=== PATIENT | female | born 1945 | race Caucasian/White ===

== ENCOUNTER 2017-07-19 08:11 | Inpatient (IN) | payer OTHER ==
--- NOTE | 2017-07-19 08:59 | PDOC ---
History of Present Illness - General Chief Complaint: Pain Stated Complaint: PAIN/ ABD, BACK Time Seen by Provider: 07/19/17 08:28 History Source: Patient Exam Limitations: No Limitations - History of Present Illness Initial Comments: This is a 72 YOF with h/o diverticulitis, HTN, chronic hematuria, cystocele repair with dermal graft and transobturator taping, total HYST/STUDY ABROAD ADVISOR, and lumbar laminectomy who presents c/o worsening LLQ pain since 07/15 which feels the same as her prior flares of diverticulitis (most recent was 9 months ago, always treated as an outpatient). She saw her PCP (Juan C Oden) on Tuesday 07/17 who prescribed Levaquin and Flagyl for presumed diverticulitis flare. He checked her urine at that time to r/o UTI and did not find infection (all per the patient's report). The pain is a constant 9/10 and twisting, worst in the LLQ, radiating to the entire groin and to the L>R back, and worsens with walking , urinating, and during bowel movements. She has been taking Tramadol per her normal prescription with partial relief. She additionally notes chills, nausea, and unchanged chronic constipation, but she denies any fever, vomiting, black/ bloody stool, diarrhea, vaginal bleeding/discharge, numbness, tingling, focal weakness, or other symptoms. She sees Dr. Mcmanus who last did an upper endoscopy and colonoscopy in August which was normal. Past History - Past Medical History Allergies/Adverse Reactions: Allergies Allergy/AdvReac Type Severity Reaction Status Date / Time Sulfa (Sulfonamide Allergy Verified 07/19/17 08:25 Antibiotics) [Sulfa(Sulfonamide Antibiotics)] Home Medications: Ambulatory Orders Metoprolol Succinate [Toprol Xl] 50 mg PO DAILY 10/19/14 Tramadol HCl [Ultram -] 50 mg PO BID PRN 10/19/14 Lisinopril/Hydrochlorothiazide [Lisinopril-Hctz 20-25 mg Tab] 1 each PO DAILY Metronidazole 500 mg PO BID 03/15/16 Ondansetron HCl [Zofran] 4 mg PO TID PRN 03/15/16 Levofloxacin [Levaquin -] 250 mg PO DAILY 07/19/17 Omeprazole 40 mg PO DAILY 07/19/17 Polyethylene Glycol 3350 [Miralax (For Daily Use) -] 17 gm PO DAILY 07/19/17 Potassium Citrate [Potassium Citrate ER] 20 meq PO DAILY 07/19/17 Anemia: No Asthma: No Cancer: No Cardiac Disorders: No COPD: No CHF: No GI Disorders: Yes (Polyps in colon) Disorders: Yes (kidney infection) HTN: Yes Hypercholesterolemia: Yes Thyroid Disease: No - Surgical History Abdominal Surgery: Yes (BLADDER SURGERY) Cardiac Surgery: No Lung Surgery: No Neurologic Surgery: Yes (back surgery) - Suicide/Smoking/Psychosocial Hx Smoking Status: Yes Smoking History: Never smoked Have you smoked in the past 12 months: Yes Number of Cigarettes Smoked Daily: 3 Information on smoking cessation initiated: No 'Breaking Loose' booklet given: 03/15/16 Hx Alcohol Use: No Drug/Substance Use Hx: No Substance Use Type: None Hx Substance Use Treatment: No Abd/GI Specific PMHX - Complaint Specific PMHX GERD: Yes GI Ulcer Disease: No Review of Systems - Review of Systems Able to Perform ROS?: Yes Constitutional: Yes: Chills. No: Fever, Unexplained wgt Loss HEENTM: No: Nose Congestion, Throat Pain Respiratory: No: Cough, Shortness of Breath Cardiac (ROS): No: Chest Pain, Palpitations ABD/GI: Yes: Constipated (chronic), Nausea, Other (abdominal pain). No: Diarrhea, Rectal Bleeding, Vomiting : Yes: Dysuria. No: Frequency, Incontinence Musculoskeletal: Yes: Back Pain (L>R). No: Neck Pain Integumentary: No: Bruising, Rash Neurological: No: Headache, Numbness, Tingling, Weakness, Dizziness Endocrine: No: Unexplained Weight Gain, Unexplained Weight Loss *Physical Exam - Vital Signs Last Vital Signs Temp Pulse Resp BP Pulse Ox 98.3 F 86 18 140/50 99 07/19/17 08:21 07/19/17 08:21 07/19/17 08:21 07/19/17 08:21 07/19/17 08:21 - Physical Exam General Appearance: Yes: Nourished, Appropriately Dressed, Other (Pleasant older adult female who is well-appearing, occasionally splints ). No: Apparent Distress HEENT: positive: EOMI, Normal Voice, Hearing Grossly Normal. negative: Scleral Icterus (R), Scleral Icterus (L), Nasal Congestion Neck: positive: Trachea midline, Supple. negative: Tender, Rigid Respiratory/Chest: positive: Lungs Clear, Normal Breath Sounds. negative: Respiratory Distress, Crackles, Rhonchi, Stridor, Wheezing Cardiovascular: positive: Regular Rhythm, Regular Rate. negative: Murmur Gastrointestinal/Abdominal: positive: Normal Bowel Sounds, Soft. negative: Tender, Organomegaly, Pulsatile Mass, Guarding Musculoskeletal: positive: Normal Inspection. negative: Decreased Range of Motion, Vertebral Tenderness Extremity: positive: Normal Capillary Refill, Normal Inspection, Normal Range of Motion. negative: Tender, Cyanosis Integumentary: positive: Normal Color, Dry, Warm. negative: Erythema, Rash, Bruising Neurologic: positive: vendor management associate II-XII NML intact, Fully Oriented, Alert, Normal Mood/ Affect, Normal Response, Motor Strength 11/23 ED Treatment Course - LABORATORY CBC & Chemistry Diagram: 07/19/17 09:08 07/19/17 09:08 Medical Decision Making - Medical Decision Making 72 YOF with h/o diverticulitis p/w LLQ and suprapubic pain radiating to the back , like prior diverticulitis flare. On exam VS wnl and patient initially in no distress but occasionally begins splinting LLQ with hands. Moderate ttp LLQ and mild ttp suprapubic and RLQ, no CVA ttp, otherwise unremarkable. DDX IBNLT diverticulitis, UTI/pyelonephritis, renal stone, perf diverticulosis, appendicitis, interstitial cystitis, nerve impingement, etc. Ordered is CBCD, CMP, lipase, CT ab/pel with IV contrast. 07/19/17 13:03 CT Abdomen/Pelvis with IV contrast shows e/o acute sigmoid diverticulitis w/o fluid collection or abscess. Page sent to Juan C Oden (PCP for patient). *DC/Admit/Observation/Transfer Diagnosis at time of Disposition: Sigmoid diverticulitis - Discharge Dispostion Condition at time of disposition: Guarded Admit: Yes - Referrals - Patient Instructions - Post Discharge Activity
--- NOTE | 2017-07-19 09:07 | PDOC ---
Attending Attestation - Resident Resident Name: Caty Brown - ED Attending Attestation I have performed the following: I have examined & evaluated the patient, The case was reviewed & discussed with the resident, I agree w/resident's findings & plan, Exceptions are as noted - HPI HPI: 07/19/17 09:03 72y F hx of htn, pre-dm, recurrent diverticulitis, radiating the the groin, pain is intermittent, lasting for ~1hr, worse in the lower abdomen (right and left) but worse on the left, associated nausea, chills, w/op fever, vomiting, dysuria, diarrhea, bpr. Symptoms since the past 4 days, had seen her pcp and was started on levqauin/flagyl and was negative. GI dr. kasper. Has chronic hematuria that she follows up with dr. mcnally. NO known hx of kidney stones. pt declines pain meds currently - Physicial Exam PE: 07/19/17 09:29 GENERAL: The patient is awake, alert, and fully oriented, Nontoxic - in no acute distress. ABDOMEN: Soft, lower abd tenderness L>R, EXTREMITIES: Normal range of motion, no edema. NEUROLOGICAL: No facial assymetry, Normal speech, SKIN: Warm, Dry, normal turgor, - Medical Decision Making 07/19/17 09:21 pt presenting with lower abdominal pain x 4 days, intermittent, nonradiating, associated with nausea, pain seems worse when she urinates. ddx includes diverticulitis, uti, pyelonephritis will ck labs, ua, CTAP pt declines any pain meds currently 07/19/17 20:15 ct was c/w diverituliits pt admited for failed outpatient treatment of diverticulitis Heart Score/ECG Review - ECG Impressions Comment:: 07/19/17 14:58 Twelve-lead EKG was performed and reviewed by me. There is normal sinus rhythm with a normal rate. Rate of 74 Impression: Normal twelve-lead EKG
[2017-07-19 09:33] LABS: BASO % 0.7 % (0-2.0); EOS % 1.7 % (0-4.5); HEMATOCRIT 44.7 % (32.4-45.2); HEMOGLOBIN 14.9 GM/dL (10.7-15.3); LYMPH % 23.3 % (8-40); MCH 31.1 pg (25.7-33.7); MCHC 33.2 g/dl (32.0-36.0); MEAN CELL VOLUME 93.7 fl (80-96); MEAN PLT VOLUME 9.9 fl (7.5-11.1); MONO % 10.9 % (3.8-10.2); NEUT % 63.4 % (42.8-82.8); PLATELET COUNT 218 K/MM3 (134-434); RBC 4.78 M/mm3 (3.60-5.2); RDW 13.4 % (11.6-15.6); WHITE BLOOD COUNT 10.1 K/mm3 (4.0-10.0)
[2017-07-19 10:02] LABS: URINE APPEARANCE CLEAR; URINE BILIRUBIN NEGATIVE (NEGATIVE); URINE BLOOD NEGATIVE (NEGATIVE); URINE COLOR AMBER; URINE GLUCOSE (UA) NEGATIVE (NEGATIVE); URINE KETONE NEGATIVE (NEGATIVE); URINE LEUK ESTERASE TRACE (NEGATIVE); URINE NITRITE NEGATIVE (NEGATIVE); URINE PROTEIN NEGATIVE (NEGATIVE)
[2017-07-19 10:06] LABS: ALBUMIN 3.6 g/dl (3.4-5.0); ANION GAP 8 (8-16); BILIRUBIN,TOTAL 0.6 mg/dL (0.2-1.0); BLOOD UREA NITROGEN 16 mg/dL (7-18); CALCIUM 9.5 mg/dL (8.5-10.1); CHLORIDE 102 mmol/L (98-107); CO2 26 mmol/L (21-32); CREATININE 0.7 mg/dL (0.55-1.02); GLUCOSE,RANDOM 111 mg/dL (74-106); LIPASE 164 U/L (73-393); MAGNESIUM 2.2 mg/dL (1.8-2.4); PHOSPHOROUS 3.7 mg/dL (2.5-4.9); SGOT/AST 15 U/L (15-37); SGPT/ALT 18 U/L (12-78); SODIUM 136 mmol/L (136-145)
[2017-07-19 10:07] LABS: ALK PHOS 104 U/L (45-117)
[2017-07-19 10:56] LABS: EPI CELLS RARE /HPF (FEW); URINE MUCUS RARE
--- NOTE | 2017-07-19 13:27 | HP ---
Admitting History and Physical - Admission Chief Complaint: RT AND LT ABD PAIN NO OTHER COMPLAINTS X 4 DAYS NOW WAS ON FLAGLY LEVAQUIN 3 DAYS NOW PO History Source: Patient Limitations to Obtaining History: No Limitations - Past Medical History Cardiovascular: Yes: HTN Gastrointestinal: Yes: Diverticulitis, Diverticulosis ...: No Musculoskeletal: Yes: Chronic low back pain - Past Surgical History Past Surgical History: Yes: Hysterectomy - Smoking History Smoking history: Never smoked Have you smoked in the past 12 months: Yes Aproximately how many cigarettes per day: 3 - Alcohol/Substance Use Hx Alcohol Use: No - Social History ADL: Independent History of Recent Travel: No Home Medications - Allergies Allergies/Adverse Reactions: Allergies Allergy/AdvReac Type Severity Reaction Status Date / Time Sulfa (Sulfonamide Allergy Verified 07/19/17 08:25 Antibiotics) [Sulfa(Sulfonamide Antibiotics)] - Home Medications Home Medications: Ambulatory Orders Metoprolol Succinate [Toprol Xl] 50 mg PO DAILY 10/19/14 Tramadol HCl [Ultram -] 50 mg PO BID PRN 10/19/14 Lisinopril/Hydrochlorothiazide [Lisinopril-Hctz 20-25 mg Tab] 1 each PO DAILY Metronidazole 500 mg PO BID 03/15/16 Ondansetron HCl [Zofran] 4 mg PO TID PRN 03/15/16 Levofloxacin [Levaquin -] 250 mg PO DAILY 07/19/17 Omeprazole 40 mg PO DAILY 07/19/17 Polyethylene Glycol 3350 [Miralax (For Daily Use) -] 17 gm PO DAILY 07/19/17 Potassium Citrate [Potassium Citrate ER] 20 meq PO DAILY 07/19/17 Family Disease History - Family Disease History Family History: Unremarkable Review of Systems - Review of Systems Gastrointestinal: reports: Abdominal Pain Physical Examination Vital Signs: Vital Signs Temperature 98.3 F 07/19/17 08:21 Pulse Rate 86 07/19/17 08:21 Respiratory Rate 18 07/19/17 08:21 Blood Pressure 140/50 07/19/17 08:21 O2 Sat by Pulse Oximetry (%) 99 07/19/17 08:21 Gastrointestinal: Yes: Tenderness, Tenderness, Epigastrium Labs: CBC, BMP 07/19/17 09:08 07/19/17 09:08 Assessment/Plan FLAGYL LEVOQIN IV ID CONSULT GI CONSULT NPO CONT ALL MEDS HOME
[2017-07-19] MEDS ORDERED: LEVOFLOXACIN 500 MG IVPB 500 MG/100 ML BAG IVPB ONE ×2 (13:31→15:00)
--- NOTE | 2017-07-19 14:55 | CONSULT ---
Consultation: REQUESTING PROVIDER: CONSULT REQUEST: We have been asked to medically evaluate this patient for recurrent diverticulitis. HISTORY OF PRESENT ILLNESS: 72 y/o F with PMH IBS, diverticulitis, HTN, chronic hematuria, cystocele repair , lumbar laminectomy, who presented to the ED with LLQ pain x 4 days. As per pt , on , she suddenly developed a loss of appetite. She thought that it was just gas, however it worsened. She soon developed 10/10 pain in her LLQ and RLQ that radiated to her back. The pain was intermittent, with each episode lasting for five minutes. Stated that it felt different from past diverticulitis episodes, as it spread to her back - in past episodes, she mainly experienced midepigastric pain. Pt tried tramadol, which minorly alleviated her pain. On 07/17, she saw her PCP Dr. Oden, who prescribed her levaquin and flagyl for a diverticulitis flare. Upon arrival to ED, she is on Day 3 of her abx course. Pain is a/w nausea. Pt denies LOREDO, fever, chills, or changes in urinary or bowel function. PMH: IBS, diverticulitis, HTN, chronic hematuria PSxH: cystolele repair, lumbar laminectomy meds: lisinopril, K citrate, polyethylene glycol, paroxetine, metoprolol, tramadol allergies: sulfa - causes angioedema FH: sister w/breast [place] SH: ~50 yrs, lives with family at home, smokes 1-2 cig/day x 40-50 yrs, denies recreational drug use ID team consulted for recurrent diverticulitis. REVIEW OF SYSTEMS: CONSTITUTIONAL: +loss of appetite Absent: fever, chills, diaphoresis, generalized weakness, malaise, loss of appetite, weight change HEENT: Absent: rhinorrhea, nasal congestion, throat pain, throat swelling, difficulty swallowing, mouth swelling, ear pain, eye pain, visual changes CARDIOVASCULAR: Absent: chest pain, syncope, palpitations, irregular heart rate, lightheadedness , peripheral edema RESPIRATORY: Absent: cough, shortness of breath, dyspnea with exertion, orthopnea, wheezing, stridor, hemoptysis GASTROINTESTINAL:+abdominal pain, nausea Absent: abdominal pain, abdominal distension, nausea, vomiting, diarrhea, constipation, melena, hematochezia GENITOURINARY: Absent: dysuria, frequency, urgency, hesitancy, hematuria, flank pain, genital pain MUSCULOSKELETAL: Absent: myalgia, arthralgia, joint swelling, back pain, neck pain SKIN: Absent: rash, itching, pallor HEMATOLOGIC/IMMUNOLOGIC: Absent: easy bleeding, easy bruising, lymphadenopathy, frequent infections ENDOCRINE: Absent: unexplained weight gain, unexplained weight loss, heat intolerance, cold intolerance NEUROLOGIC: Absent: headache, focal weakness or paresthesias, dizziness, unsteady gait, seizure, mental status changes, bladder or bowel incontinence PSYCHIATRIC: Absent: anxiety, depression, suicidal or homicidal ideation, hallucinations. PHYSICAL EXAMINATION Vital Signs 07/19/17 08:21 Temperature 98.3 F Pulse Rate 86 Respiratory 18 Rate Blood Pressure 140/50 O2 Sat by Pulse 99 Oximetry (%) GENERAL: Awake, alert, and fully oriented, in mild distress. HEAD: Normal with no signs of trauma. EYES: Pupils equal, round and reactive to light, extraocular movements intact, sclera anicteric, conjunctiva clear. EARS, NOSE, THROAT: Ears normal, nares patent, oropharynx clear without exudates. NECK: Normal range of motion, supple LUNGS: Breath sounds equal, clear to auscultation bilaterally. No wheezes, and no crackles. No accessory muscle use. HEART: Regular rate and rhythm, normal S1 and S2 without murmur, rub or gallop. ABDOMEN: Soft, tender to palpation RLQ, LLQ, flanks, distended, normoactive bowel sounds, no guarding, no rebound MUSCULOSKELETAL: No CVA tenderness LOWER EXTREMITIES: 2+ posterior tibial pulses, warm. No peripheral edema. NEUROLOGICAL: Cranial nerves II-XII intact. Laboratory Results - last 24 hr 07/19/17 07/19/17 07/19/17 09:08 09:08 09:08 WBC 10.1 H RBC 4.78 Hgb 14.9 Hct 44.7 MCV 93.7 MCH 31.1 MCHC 33.2 RDW 13.4 Plt Count 218 MPV 9.9 Neutrophils % 63.4 Lymphocytes % 23.3 Monocytes % 10.9 H Eosinophils % 1.7 Basophils % 0.7 Sodium 136 Potassium 4.0 D Chloride 102 Carbon Dioxide 26 Anion Gap 8 BUN 16 D Creatinine 0.7 Creat Clearance w eGFR > 60 Random Glucose 111 H Calcium 9.5 Phosphorus 3.7 Magnesium 2.2 Total Bilirubin 0.6 AST 15 D ALT 18 D Alkaline Phosphatase 104 Total Protein 7.0 Albumin 3.6 Lipase 164 Urine Color Sima Urine Appearance Clear Urine pH 6.0 Ur Specific [place] 1.024 Urine Protein Negative Urine Glucose (UA) Negative Urine Ketones Negative Urine Blood Negative Urine Nitrite Negative Urine Bilirubin Negative Urine Urobilinogen 2.0 H Ur Leukocyte Esterase Negative Urine WBC (Auto) 1 Urine RBC (Auto) 4 Ur Epithelial Cells Rare Urine Mucus Rare Active Medications Generic Name Dose Route Start Last Admin Trade Name Richard PRN Reason Stop Dose Admin Aspirin 81 mg 07/20/17 10:00 Ecotrin - PO DAILY PAVAN Metronidazole 500 mg in 100 mls @ 100 mls/hr 07/19/17 18:00 Flagyl 500mg Premixed Ivpb - IVPB Q8H-IV PAVAN Lisinopril 20 mg 07/20/17 10:00 Prinivil PO DAILY PAVAN Microbiology -Urine Cx -pending Radio -CT abdomen and pelvis: acute sigmoid diverticulitis, no free peritoneal air, thickened urinary bladder, renal cyst or lesion ASSESSMENT/PLAN: #Acute sigmoid diverticulitis -afebrile, without leukocytosis -received levaquin and flagyl -now on rocephin 1g IVPB and flagyl 500mg IVPB q8H -NPO -On D5 IVF -F/u urine cx -Will follow GI recs Thank you Sue Flores MD PGY-1 ID Team Dispo: We will continue to follow the patient. Thank you for this consultative opportunity. Visit type - Emergency Visit Emergency Visit: Yes Care time: The patient presented to the Emergency Department on the above date and was hospitalized for further evaluation of their emergent condition. - New Patient This patient is new to me today: Yes Date on this admission: 07/19/17 - Critical Care Critical Care patient: No
[2017-07-19] MEDS ORDERED: CEFTRIAXONE 1 GM/50 ML BAG ONE (15:00)
[2017-07-19] MEDS: DEXTROSE 5%-NORMAL SALINE 1,000 ML IV SCH ×2 (15:01→23:52)
[2017-07-19] MEDS: CEFTRIAXONE 1 G/50 ML PREMIX 50 ML IVPB SCH (15:01)
--- NOTE | 2017-07-19 15:01 | CON.GI ---
Consult Consult Specialty:: GI Referred by:: Dr Juan C Oden Reason for Consultation:: diverticulitis - History of Present Illness History of Present Illness: 72 y/o F with PMH of recurrent diverticulitis, s/p colonoscopy --severe diverticulosis of the left colon was admitted for further evaluation and management of diverticulitis. SHe was doing well until 1 week ago when she developed progressive llq pain. Two days ago she was seen by PMD and was started on FLagyl and Levaquin. - Past Medical History Cardio/Vascular: Yes: HTN Gastrointestinal: Yes: Diverticulitis, Diverticulosis ...: No Musculoskeletal: Yes: Chronic low back pain - Past Surgical History Past Surgical History: Yes: Hysterectomy - Alcohol/Substance Use Hx Alcohol Use: No - Smoking History Smoking history: Never smoked Have you smoked in the past 12 months: Yes Aproximately how many cigarettes per day: 3 - Social History ADL: Independent History of Recent Travel: No Home Medications - Allergies Allergies/Adverse Reactions: Allergies Allergy/AdvReac Type Severity Reaction Status Date / Time Sulfa (Sulfonamide Allergy Verified 07/19/17 08:25 Antibiotics) [Sulfa(Sulfonamide Antibiotics)] - Home Medications Home Medications: Ambulatory Orders Metoprolol Succinate [Toprol Xl] 50 mg PO DAILY 10/19/14 Tramadol HCl [Ultram -] 50 mg PO BID PRN 10/19/14 Lisinopril/Hydrochlorothiazide [Lisinopril-Hctz 20-25 mg Tab] 1 each PO DAILY Metronidazole 500 mg PO BID 03/15/16 Ondansetron HCl [Zofran] 4 mg PO TID PRN 03/15/16 Levofloxacin [Levaquin -] 250 mg PO DAILY 07/19/17 Omeprazole 40 mg PO DAILY 07/19/17 Polyethylene Glycol 3350 [Miralax (For Daily Use) -] 17 gm PO DAILY 07/19/17 Potassium Citrate [Potassium Citrate ER] 20 meq PO DAILY 07/19/17 Review of Systems - Review of Systems Constitutional: denies: No Symptoms, Chills, Diaphoresis, Fever, Lethargy, Loss of Appetite, Malaise, Night Sweats, Unintentional Wgt. Loss, Weakness, Other Eyes: denies: No Symptoms, Blind Spots, Blurred Vision, Double Vision, Eye Pain , Floaters, Photophobia, Recent Change in Vision, Other HENT: denies: No Symptoms, Difficult Swallowing, Ear Discharge, Ear Pain, Epistaxis, Gingival Bleeding, Hearing Loss, Mouth Swelling, Nasal Congestion, Ocular Prosthesis, Throat Pain, Toothache, Ringing in Ears, Other Physical Exam-GI Vital Signs: Vital Signs Temperature 98.3 F 07/19/17 08:21 Pulse Rate 86 07/19/17 08:21 Respiratory Rate 18 07/19/17 08:21 Blood Pressure 140/50 07/19/17 08:21 O2 Sat by Pulse Oximetry (%) 99 07/19/17 08:21 Constitutional: Yes: Well Nourished Eyes: Yes: Conjunctiva Clear HENT: Yes: Atraumatic Neck: Yes: Supple Cardiovascular: Yes: Regular Rate and Rhythm Respiratory: Yes: CTA Bilaterally ...Palpate: Yes: Soft, Tenderness (--llq). No: Firm/Rigid, Guarding, Hepatomegaly, Mass, Splenomegaly Labs: CBC, BMP 07/19/17 09:08 07/19/17 09:08 Problem List - Problems (1) Sigmoid diverticulitis Assessment/Plan: recurrent diverticulitis, severe diverticulosis by colonoscopyIV R> IV hydration IV Ceftriaxone discussed with Dr Juan C Oden Code(s): K57.32 - DVTRCLI OF LG INT W/O PERFORATION OR ABSCESS W/O BLEEDING
--- NOTE | 2017-07-19 15:18 | PN ---
Teaching Attending Note Name of Resident: Sue Flores ATTENDING PHYSICIAN STATEMENT I saw and evaluated the patient. I reviewed the resident's note and discussed the case with the resident. I agree with the resident's findings and plan as documented. SUBJECTIVE:NO acute distress Previously on quinolone and flagyl outpt OBJECTIVE: ASSESSMENT AND PLAN: Selected Entries 07/19/17 08:21 Temperature 98.3 F Respiratory 18 Rate Blood Pressure 140/50 O2 Sat by Pulse 99 Oximetry (%) Weight 159 lb Abd Sofst tender throughout lower abd but mostly LLQ no rebound Assessment Acute sigmoid diverticulitis Plan Ceftriaxone and metronidazole NPO IVF Anthony HAMEED Problem List - Problems (1) Sigmoid diverticulitis Code(s): K57.32 - DVTRCLI OF LG INT W/O PERFORATION OR ABSCESS W/O BLEEDING
[2017-07-19] MEDS ORDERED: morphine CARPU-JECT 4 MG/1 ML DISP.SYRIN IVPUSH ONE (17:31)
[2017-07-19] MEDS: METRONIDAZOLE 500 MG PREMIXED 500 MG/100 ML MG IVPB SCH (17:34)
[2017-07-19] MEDS ORDERED: METRONIDAZOLE 500 MG PREMIXED 500 MG/100 ML MG IVPB ONE (17:40)
[2017-07-19 20:58] VITALS: BMI 31.8
[2017-07-20] MEDS: METRONIDAZOLE 500 MG PREMIXED 500 MG/100 ML MG IVPB SCH ×2 (01:10→12:00)
[2017-07-20 07:50] LABS: BASO % 0.7 % (0-2.0); EOS % 3.7 % (0-4.5); HEMATOCRIT 38.2 % (32.4-45.2); HEMOGLOBIN 12.6 GM/dL (10.7-15.3); LYMPH % 29.9 % (8-40); MCH 31.2 pg (25.7-33.7); MEAN CELL VOLUME 94.6 fl (80-96); MEAN PLT VOLUME 9.9 fl (7.5-11.1); MONO % 11.8 % (3.8-10.2); NEUT % 53.9 % (42.8-82.8); PLATELET COUNT 178 K/MM3 (134-434); RBC 4.04 M/mm3 (3.60-5.2); RDW 13.3 % (11.6-15.6); WHITE BLOOD COUNT 6.5 K/mm3 (4.0-10.0)
[2017-07-20 08:02] LABS: ALBUMIN 2.8 g/dl (3.4-5.0); ANION GAP 7 (8-16); BLOOD UREA NITROGEN 11 mg/dL (7-18); CALCIUM 8.2 mg/dL (8.5-10.1); CHLORIDE 108 mmol/L (98-107); CO2 25 mmol/L (21-32); GLUCOSE,RANDOM 119 mg/dL (74-106); POTASSIUM 3.5 mmol/L (3.5-5.1); SGOT/AST 10 U/L (15-37); SGPT/ALT 15 U/L (12-78); SODIUM 140 mmol/L (136-145)
[2017-07-20 08:05] LABS: ALK PHOS 75 U/L (45-117); BILIRUBIN,TOTAL 0.5 mg/dL (0.2-1.0); CREATININE 0.5 mg/dL (0.55-1.02); TOT PROT 5.4 g/dl (6.4-8.2)
[2017-07-20] MEDS: DEXTROSE 5%-NORMAL SALINE 1,000 ML IV SCH ×2 (10:07→22:23)
[2017-07-20] MEDS: LISINOPRIL 20 MG TABLET (FP) PO SCH (10:08)
[2017-07-20] MEDS: ASPIRIN COATED 81 MG TABLET.EC PO SCH (10:08)
[2017-07-20] MEDS: CEFTRIAXONE 1 G/50 ML PREMIX 50 ML IVPB SCH (10:09)
--- NOTE | 2017-07-20 11:18 | EKG ---
Test Reason : Blood Pressure : / mmHG Vent. Rate : 074 BPM Atrial Rate : 074 BPM P-R Int : 140 ms QRS Dur : 090 ms QT Int : 394 ms P-R-T Axes : 057 015 033 degrees QTc Int : 437 ms NORMAL SINUS RHYTHM NORMAL ECG WHEN COMPARED WITH ECG OF 08-FEB-2012 21:22, NO SIGNIFICANT CHANGE WAS FOUND BASELINE ARTIFACT Confirmed by SHERON WEISS MD ([id number]) on 07/20/2017 11:18:04 AM Referred By: Confirmed By:SHERON WEISS MD
--- NOTE | 2017-07-20 11:53 | PN ---
Progress Note, Physician - Current Medication List Current Medications: Active Medications Aspirin (Ecotrin -) 81 mg PO DAILY [facility] Last Admin: 07/20/17 10:08 Dose: 81 mg Metronidazole (Flagyl 500mg Premixed Ivpb -) 500 mg in 100 mls @ 100 mls/hr IVPB Q8H-IV PAVAN Last Admin: 07/20/17 01:10 Dose: 100 mls/hr CEFTRIAXONE 1 G/50 ML PREMIX (Ceftriaxone 1 Gm-D5w Bag) 50 mls @ 100 mls/hr IVPB DAILY [facility] Last Admin: 07/20/17 10:09 Dose: 100 mls/hr Dextrose/Sodium Chloride (D5-Ns -) 1,000 mls @ 125 mls/hr IV ASDIR [facility] Stop: 07/21/17 22:59 Last Admin: 07/20/17 10:07 Dose: 125 mls/hr Lisinopril (Prinivil) 20 mg PO DAILY [facility] Last Admin: 07/20/17 10:08 Dose: 20 mg - Objective Vital Signs: Vital Signs Temperature 98 F 07/20/17 06:00 Pulse Rate 81 07/20/17 06:00 Respiratory Rate 20 07/20/17 06:00 Blood Pressure 123/86 07/20/17 06:00 O2 Sat by Pulse Oximetry (%) 97 07/19/17 20:48 Labs: CBC, BMP 07/20/17 06:00 07/20/17 06:00 Assessment/Plan PT FEELS BETTER VSS ? D/C IN AM POP ANTBX
--- NOTE | 2017-07-20 11:55 | PN ---
Progress Note, Physician - Current Medication List Current Medications: Active Medications Aspirin (Ecotrin -) 81 mg PO DAILY [facility] Last Admin: 07/20/17 10:08 Dose: 81 mg Metronidazole (Flagyl 500mg Premixed Ivpb -) 500 mg in 100 mls @ 100 mls/hr IVPB Q8H-IV [facility] Last Admin: 07/20/17 01:10 Dose: 100 mls/hr CEFTRIAXONE 1 G/50 ML PREMIX (Ceftriaxone 1 Gm-D5w Bag) 50 mls @ 100 mls/hr IVPB DAILY [facility] Last Admin: 07/20/17 10:09 Dose: 100 mls/hr Dextrose/Sodium Chloride (D5-Ns -) 1,000 mls @ 125 mls/hr IV ASDIR [facility] Stop: 07/21/17 22:59 Last Admin: 07/20/17 10:07 Dose: 125 mls/hr Lisinopril (Prinivil) 20 mg PO DAILY [facility] Last Admin: 07/20/17 10:08 Dose: 20 mg - Objective Vital Signs: Vital Signs Temperature 98 F 07/20/17 06:00 Pulse Rate 81 07/20/17 06:00 Respiratory Rate 20 07/20/17 06:00 Blood Pressure 123/86 07/20/17 06:00 O2 Sat by Pulse Oximetry (%) 97 07/19/17 20:48 Labs: CBC, BMP 07/20/17 06:00 07/20/17 06:00
--- NOTE | 2017-07-20 11:58 | PN ---
Progress Note, Physician - Current Medication List Current Medications: Active Medications Aspirin (Ecotrin -) 81 mg PO DAILY [facility] Last Admin: 07/20/17 10:08 Dose: 81 mg Metronidazole (Flagyl 500mg Premixed Ivpb -) 500 mg in 100 mls @ 100 mls/hr IVPB Q8H-IV [facility] Last Admin: 07/20/17 01:10 Dose: 100 mls/hr CEFTRIAXONE 1 G/50 ML PREMIX (Ceftriaxone 1 Gm-D5w Bag) 50 mls @ 100 mls/hr IVPB DAILY [facility] Last Admin: 07/20/17 10:09 Dose: 100 mls/hr Dextrose/Sodium Chloride (D5-Ns -) 1,000 mls @ 125 mls/hr IV ASDIR [facility] Stop: 07/21/17 22:59 Last Admin: 07/20/17 10:07 Dose: 125 mls/hr Lisinopril (Prinivil) 20 mg PO DAILY [facility] Last Admin: 07/20/17 10:08 Dose: 20 mg - Objective Vital Signs: Vital Signs Temperature 98 F 07/20/17 06:00 Pulse Rate 81 07/20/17 06:00 Respiratory Rate 20 07/20/17 06:00 Blood Pressure 123/86 07/20/17 06:00 O2 Sat by Pulse Oximetry (%) 97 07/19/17 20:48 Labs: CBC, BMP 07/20/17 06:00 07/20/17 06:00
[2017-07-20] MEDS ORDERED: ACETAMINOPHEN 325 MG TABLET (FP) PO PRN (22:39)
[2017-07-21] MEDS: METRONIDAZOLE 500 MG PREMIXED 500 MG/100 ML MG IVPB SCH (01:47)
[2017-07-21 08:16] LABS: BASO % 0.7 % (0-2.0); EOS % 4.1 % (0-4.5); HEMATOCRIT 39.8 % (32.4-45.2); HEMOGLOBIN 13.1 GM/dL (10.7-15.3); LYMPH % 40.5 % (8-40); MCH 30.9 pg (25.7-33.7); MCHC 32.9 g/dl (32.0-36.0); MEAN CELL VOLUME 94.1 fl (80-96); MEAN PLT VOLUME 9.8 fl (7.5-11.1); MONO % 9.5 % (3.8-10.2); NEUT % 45.2 % (42.8-82.8); PLATELET COUNT 206 K/MM3 (134-434); RBC 4.23 M/mm3 (3.60-5.2); RDW 13.3 % (11.6-15.6); WHITE BLOOD COUNT 5.3 K/mm3 (4.0-10.0)
[2017-07-21 09:37] LABS: ANION GAP 7 (8-16); BLOOD UREA NITROGEN 6 mg/dL (7-18); CALCIUM 8.3 mg/dL (8.5-10.1); CHLORIDE 113 mmol/L (98-107); CO2 23 mmol/L (21-32); CREATININE 0.4 mg/dL (0.55-1.02); GLUCOSE,RANDOM 107 mg/dL (74-106); POTASSIUM 3.5 mmol/L (3.5-5.1); SODIUM 143 mmol/L (136-145)
--- NOTE | 2017-07-21 10:31 | PN ---
GI Progress Note Subjective: no abdominal pain, tolerating breakfast - Objective Vital Signs: Vital Signs Temperature 98 F 07/21/17 05:55 Pulse Rate 85 07/21/17 05:55 Respiratory Rate 20 07/21/17 05:55 Blood Pressure 136/60 07/21/17 05:55 O2 Sat by Pulse Oximetry (%) 96 07/20/17 21:00 Constitutional: Well Nourished Eyes: Yes: Conjunctiva Clear HENT: Yes: Atraumatic Neck: Yes: Supple Cardiovascular: Yes: Regular Rate and Rhythm Respiratory: Yes: CTA Bilaterally ...Palpate: Yes: Soft. No: Firm/Rigid, Guarding, Hepatomegaly, Mass, Splenomegaly, Tenderness Labs: CBC, BMP 07/21/17 06:00 07/21/17 06:00 Problem List - Problems (1) Sigmoid diverticulitis Assessment/Plan: --resolving R> follow -up in 2 weeks Flagyl 250mg tid d/w Dr Juan C Oden Code(s): K57.32 - DVTRCLI OF LG INT W/O PERFORATION OR ABSCESS W/O BLEEDING
--- NOTE | 2017-07-21 10:35 | PN ---
Progress Note, Physician - Current Medication List Current Medications: Active Medications Acetaminophen (Tylenol -) 650 mg PO Q6H PRN PRN Reason: FEVER OR PAIN Last Admin: 07/20/17 23:03 Dose: 650 mg Aspirin (Ecotrin -) 81 mg PO DAILY [facility] Last Admin: 07/20/17 10:08 Dose: 81 mg Lisinopril (Prinivil) 20 mg PO DAILY [facility] Last Admin: 07/20/17 10:08 Dose: 20 mg - Objective Vital Signs: Vital Signs Temperature 98 F 07/21/17 05:55 Pulse Rate 85 07/21/17 05:55 Respiratory Rate 20 07/21/17 05:55 Blood Pressure 136/60 07/21/17 05:55 O2 Sat by Pulse Oximetry (%) 96 07/20/17 21:00 Labs: CBC, BMP 07/21/17 06:00 07/21/17 06:00 Assessment/Plan pt well no complaints vss gi cleared pt d/c home todaty po flagyl po 250 bid x 2 wks f/u w me x 1 wk cont all meds at home as is
[2017-07-21] MEDS: LISINOPRIL 20 MG TABLET (FP) PO SCH (11:32)
[2017-07-21] MEDS: ASPIRIN COATED 81 MG TABLET.EC PO SCH (11:32)
[2017-07-21] MEDS ORDERED: METRONIDAZOLE 500 MG PREMIXED 500 MG/100 ML MG IVPB ONE (12:15)
[2017-07-21 13:28] VITALS: BP 141/64; PULSE 76; TEMP 97.5
== END 2017-07-21 15:00 | disposition home or self-care (01) | DRG 392 ==
LOC: JER 08:11 → JERBED 13:08 → UNDOADMIN 13:08 → J7W 13:27 → JASUSAT 13:27 → J7W 19:18 → JASUSAT 19:20 → J7W 19:20 → JASUSAT 07-20 11:50
PROVIDERS: ADMIT Family Medicine; ATTEND Family Medicine
DX: K57.32 Diverticulitis of large intestine without perforation or abscess without bleeding (principal); I10 Essential (primary) hypertension; K58.9 Irritable bowel syndrome, unspecified; M54.5 Low back pain
CPT/HCPCS: 36415; 74177-TC; 80048; 80053; 81003; 81015; 83690; 83735; 84100; 85025; 87086; 93005; 93010; 99283-25